=== PATIENT | female | born 1960 | race Caucasian/White ===

== ENCOUNTER → 2021-03-26 | Outpatient (CLI) | payer BC | LOC: KOH-I 09:34 | DX: S92.402A Displaced unspecified fracture of left great toe, initial encounter for closed fracture (principal); S92.322A Displaced fracture of second metatarsal bone, left foot, initial encounter for closed fracture; M19.072 Primary osteoarthritis, left ankle and foot | CPT/HCPCS: 73630 ==

== ENCOUNTER → 2021-04-14 | Outpatient (CLI) | payer BC | LOC: KOH-I 09:31 | DX: S92.325A Nondisplaced fracture of second metatarsal bone, left foot, initial encounter for closed fracture (principal) | CPT/HCPCS: 73630 ==

== ENCOUNTER → 2021-05-14 | Outpatient (CLI) | payer BC | LOC: KOH-I 11:01 | DX: S92.322D Displaced fracture of second metatarsal bone, left foot, subsequent encounter for fracture with routine healing (principal); S92.332D Displaced fracture of third metatarsal bone, left foot, subsequent encounter for fracture with routine healing; S92.342D Displaced fracture of fourth metatarsal bone, left foot, subsequent encounter for fracture with routine healing; M19.072 Primary osteoarthritis, left ankle and foot | CPT/HCPCS: 73630 ==